=== PATIENT | male | born 1960 | race Two or more races ===

== ENCOUNTER → 2022-04-28 | Emergency (ER) | payer OTHER ==
[~2022-04-28] VITALS: Ht 167.6 cm; Wt 86.2 kg
[~2022-04-28] MED LIST: COZAAR25 MG PO; LANTUS SOL100 UNIT/1 SQ; LYRICA20 MG/1 ML PO
== END | disposition home or self-care (01) ==
LOC: ER 16:05
DX: M25.562 Pain in left knee (principal); E11.9 Type 2 diabetes mellitus without complications; Z79.4 Long term (current) use of insulin